=== PATIENT | female | born 1985 | race Hispanic/Latino ===

== ENCOUNTER 2017-09-13 18:05 | Emergency (ER) | payer BC ==
--- NOTE | 2017-09-13 21:44 | RAD ---
EXAM: LEFT HAND THIRD DIGIT THREE VIEWS 09/13/17 HISTORY: Pain. Injury. COMPARISON: None. FINDINGS: Joint space is preserved. No fracture. No cortical irregularity or periosteal reaction. IMPRESSION: No fracture. POS: [facility]ILA
[2017-09-13] MEDS ORDERED: Lidocaine 1% PF 5 ML VIAL ONE (22:37)
[2017-09-13] MEDS ORDERED: Bacitracin Zinc 1 Packet ONE (23:04)
== END 2017-09-13 23:17 | disposition home or self-care (01) ==
LOC: ERS 18:05
DX: S61.213A Laceration without foreign body of left middle finger without damage to nail, initial encounter (principal); W26.0XXA Contact with knife, initial encounter
CPT/HCPCS: 12001; J2001

== ENCOUNTER 2018-04-21 13:38 | Outpatient (CLI) | payer OTHER | END 2018-04-21 13:39 | disposition home or self-care (01) | LOC: BICULT 13:38 | PROVIDERS: ATTEND Family Medicine | DX: Z34.02 Encounter for supervision of normal first pregnancy, second trimester (principal); O32.1XX0 Maternal care for breech presentation, not applicable or unspecified; Z3A.20 20 weeks gestation of pregnancy | CPT/HCPCS: 76805 ==

== ENCOUNTER 2018-09-01 19:19 | Inpatient (IN) | payer MEDICAID, OTHER, SELFPAY ==
[2018-09-01] MEDS ORDERED: Butorphanol Tartrate 1 MG/ML VIAL SLOW IVP PRN (19:36)
[2018-09-01] MEDS ORDERED: NS / Oxytocin 40 units/1000ml 1,000 ML IV PRN (19:36)
[2018-09-01] MEDS ORDERED: Promethazine HCl 25 MG/ML VIAL IM PRN (19:36)
[2018-09-01] MEDS ORDERED: Lidocaine 1% (PF) 30 ML VIAL SC PRN (19:36)
[2018-09-01] MEDS ORDERED: Acetaminophen 500 MG TAB PO PRN (19:36)
[2018-09-01] MEDS ORDERED: Ondansetron PF 4 MG/2 ML Vial IVP PRN (19:36)
[2018-09-01] MEDS ORDERED: Ibuprofen 800 MG TAB PO PRN (19:36)
--- NOTE | 2018-09-01 19:39 | PDOC.EVN ---
Event Note - Event Note Event Note: 09/01/2018 at 21:30 33 year old female, patient of Dr. Aragon, presents with SROM and contractions since 21:00. Team called down to ER for possible precipitous delivery. Patient was checked and noted to be 2/100/0. She was brought up to L&D for expectant management. We are trying to obtain labs and history at this time. Patient does not desire epidural. Mable Chaudhari, DO PGY-2
[2018-09-01] MEDS ORDERED: Lactated Ringer's 1,000 ML IV SCH (19:45)
[2018-09-01 20:00] VITALS: BMI 33.0
[2018-09-01 20:13] LABS: Hemoglobin 11.3 g/dL (12.0-16.0); Mean Corpuscular HGB CONC 34.8 g/dL (32.0-36.0); Mean Corpuscular Hemoglobin 29.2 pg (27.0-31.0); Mean Corpuscular Volume 84.1 fL (78.0-98.0); Mean Platelet Volume 6.7 fL (7.4-10.4); Platelet Count 382 thou/uL (130-400); RBC Distribution Width 13.2 % (11.5-14.5); Red Blood Cell (RBC) Count 3.86 mill/uL (4.20-5.40); White Blood Cell (WBC) Count 11.9 thou/uL (4.8-10.8)
[2018-09-01 20:52] LABS: Syphilis Antibody Nonreactive (Nonreactive); Syphilis Antibody Index 0.52 S/CO (<1.00 Non-Reactive)
--- NOTE | 2018-09-01 20:52 | PDOC.LDHP ---
Labor and Delivery H&P Chief complaint: contractions, loss of fluid HPI: 33 year old at 39.5 wks with BERT of 09/03/2018 presents with PROM at 21: 00. Patient started to have regular contractions shortly thereafter. Denies vaginal bleeding. Endorses good movement. Current gestational age (weeks): 39 (39.5 wks) Due date: 09/03/18 Grav: 2 Para: 0 (0010) OB History Details: No complications in this per patient report Hx of SAB x1 Current complications: none Past Medical History: None Current medications: none Previous surgical history: none Allergies/Adverse Reactions: Allergies Allergy/AdvReac Type Severity Reaction Status Date / Time No Known Allergies Allergy Verified 09/01/18 19:46 Social history: none - Physical Exam Vital signs reviewed and normal: yes General: breathing through contractions Heart: RRR Lungs: nonlabored breathing Abdomen: gravid Extremeties: no edema FHT: category 1, variability present Hiram contractions every: q2 min - Vaginal Exam cm dilated: 2 Effacement: 90% Station: 0 - OB Labs GBS: negative (per patient report) - Assessment L&D Assessment: term rupture in membranes (expectant management) - Plan Plan: admit to L&D, other (DR Aragon notifed by me Patient seen and examined by Dr Phoenxi and myself)
[2018-09-01] MEDS ORDERED: Lidocaine 1% (PF) 30 ML VIAL ONE (21:02)
[2018-09-01] MEDS ORDERED: NS / Oxytocin 40 units/1000ml 1,000 ML ONE (21:02)
[2018-09-02] MEDS ORDERED: Lanolin Ointment 7 GM TUBE TOP PRN
[2018-09-02] MEDS ORDERED: diphenhydrAMINE 25 MG CAP PO PRN
[2018-09-02] MEDS ORDERED: Bisacodyl 10 MG SUPP PR PRN
[2018-09-02] MEDS ORDERED: NS / Oxytocin 40 units/1000ml 1,000 ML IV SCH
[2018-09-02] MEDS ORDERED: Benzocaine/Menthol 20-0.5% 60 ML CAN TOP PRN
[2018-09-02] MEDS ORDERED: Ondansetron PF 4 MG/2 ML Vial IVP PRN
[2018-09-02] MEDS ORDERED: HYDROcodone/Acetaminophen 5/325 mg Tablet PO PRN
[2018-09-02] MEDS ORDERED: Milk Of Magnesia 30 ML UDCUP PO PRN
[2018-09-02 00:15] LABS: HBSAg Index 0.25 S/CO (0-0.99); HIV (1/2) Antibody/Antigen Non-Reactive (NonReactive); HIV 1/2 INDEX 0.12 S/CO (<1.00); Hep B Surf Ag Non-Reactive S/CO (NonReactive)
[2018-09-02] MEDS: HYDROcodone/Acetaminophen 5/325 mg Tablet PO PRN ×2 (04:57→17:21)
[2018-09-02 05:49] LABS: Hemoglobin 8.3 g/dL (12.0-16.0); Mean Corpuscular HGB CONC 33.7 g/dL (32.0-36.0); Mean Corpuscular Hemoglobin 28.4 pg (27.0-31.0); Mean Corpuscular Volume 84.3 fL (78.0-98.0); Mean Platelet Volume 6.9 fL (7.4-10.4); Platelet Count 290 thou/uL (130-400); RBC Distribution Width 13.1 % (11.5-14.5); Red Blood Cell (RBC) Count 2.93 mill/uL (4.20-5.40); White Blood Cell (WBC) Count 17.3 thou/uL (4.8-10.8)
[2018-09-02] MEDS: Ibuprofen 800 MG TAB PO SCH ×3 (06:05→21:24)
[2018-09-02] MEDS ORDERED: Adacel (T-DAP) 0.5 ML SYRINGE IM ONE (09:00)
[2018-09-02] MEDS: Docusate Calcium (SURFAK) 240 MG CAP PO SCH ×2 (09:53→21:24)
[2018-09-02] MEDS: Prenatal Vitamin 1 TAB PO SCH (09:53)
[2018-09-02] MEDS: Ferrous Sulfate 325 MG TAB PO SCH ×2 (09:53→17:19)
[2018-09-03] MEDS: HYDROcodone/Acetaminophen 5/325 mg Tablet PO PRN (00:52)
[2018-09-03] MEDS: Ibuprofen 800 MG TAB PO SCH ×2 (05:54→13:48)
[2018-09-03] MEDS ORDERED: Polyethylene Glycol 3350 17 GM Packet PO PRN (07:26)
--- NOTE | 2018-09-03 07:55 | PDOC.PP ---
Post Progress Note Post Day #: 2 Subjective: Doing well. Doesn't have water at home and wishes to stay. Has not had BM and would like medication to help. PO intake tolerated: yes Flatus: yes Ambulation: yes Weight Weight 175 lb - Physical Examination General: NAD Respiratory: non-labored breathing Abdominal: lochia (normal), no distention, appropriately TTP Fundus firm & at: U-3 Neurological: no gross focal deficits Psychiatric: A&Ox3, normal affect Result Diagrams: 09/02/18 05:30 Additional Labs: Post Labs Blood Type O POSITIVE 09/01/18 20:01 Hep Bs Antigen Non-Reactive S/CO (NonReactive) 09/01/18 20:01 - Assessment/Plan Plan for d/c today but will check on possibility of B&B vs d/c tomorrow. Miralax ordered.
[2018-09-03 08:21] VITALS: BP 97/52; TEMP 97.5
[2018-09-03] MEDS: Prenatal Vitamin 1 TAB PO SCH (08:53)
[2018-09-03] MEDS: Docusate Calcium (SURFAK) 240 MG CAP PO SCH (08:53)
[2018-09-03] MEDS: Ferrous Sulfate 325 MG TAB PO SCH ×2 (08:53→17:20)
== END 2018-09-03 18:25 | disposition home or self-care (01) | DRG 807 ==
LOC: L&D/OP 19:19 → L&D 20:06 → 3SW 09-02 01:06
PROVIDERS: ADMIT Family Medicine; ATTEND Family Medicine
PROC: 10E0XZZ Delivery of Products of Conception, External Approach (ICD-10-PCS; principal; 2018-09-01)
PROC: 0W8NXZZ Division of Female Perineum, External Approach (ICD-10-PCS; 2018-09-01)
DX: O42.02 Full-term premature rupture of membranes, onset of labor within 24 hours of rupture (principal); Z37.0 Single live birth; Z3A.39 39 weeks gestation of pregnancy; O76 Abnormality in fetal heart rate and rhythm complicating labor and delivery
CPT/HCPCS: 36415; 85027; 86780; 86850; 86900; 86901; 87340; 87389; 99285; J2001

== ENCOUNTER 2020-07-14 08:36 | Outpatient (CLI) | payer OTHER ==
--- NOTE | 2020-07-14 11:28 | ULT ---
COMPLETE ABDOMINAL ULTRASOUND GREATER THAN 14 WEEKS: Date: 07/14/2020 HISTORY: Anatomy. Cervix evaluation. FINDINGS: Single viable intrauterine fetus is noted in breech presentation. Placenta is anterior. Amniotic fluid within normal limits. heart rate 143 bpm. Cervical length 3.0 cm. Maternal adnexa not demonstrated on this study. Anatomy: Visualized brain, 4 chamber heart, 3 vessel cord, stomach, bladder, kidneys, spine, and extremi ty regions are unremarkable. Biometry: BPD: 4.8 cm - 20 weeks 5 days HC: 17.5 cm - 20 weeks 0 days AC: 16.4 cm - 21 weeks 4 days FL: 3.5 cm - 21 weeks 1 day IMPRESSION: Single, viable breech intrauterine fetus at 20 weeks 6 days with an BERT of 11/25/2020. POS: RRE
== END 2020-07-14 08:37 | disposition home or self-care (01) ==
LOC: BICULT 08:36
PROVIDERS: ATTEND Family Medicine
DX: O09.522 Supervision of elderly multigravida, second trimester (principal); O32.1XX0 Maternal care for breech presentation, not applicable or unspecified; Z3A.20 20 weeks gestation of pregnancy
CPT/HCPCS: 76805

== ENCOUNTER 2020-07-29 08:36 | Outpatient (CLI) | payer OTHER ==
--- NOTE | 2020-07-29 10:42 | ULT ---
LIMITED OB ULTRASOUND: INDICATION: Assess cervical length. FINDINGS: There is a single viable intrauterine . Cervical length: 4.02 cm. The internal os is closed. Placenta: Anterior. heart rate: 142 b.p.m. Presentation: Breech. POS: AGW
== END 2020-07-29 08:37 | disposition home or self-care (01) ==
LOC: BICULT 08:36
PROVIDERS: ATTEND Family Medicine
DX: O09.522 Supervision of elderly multigravida, second trimester (principal)
CPT/HCPCS: 76815

== ENCOUNTER 2023-09-02 14:52 | Outpatient (CLI) | payer OTHER | END 2023-09-02 14:53 | disposition home or self-care (01) | LOC: BICRAD 14:52 | DX: S69.92XA Unspecified injury of left wrist, hand and finger(s), initial encounter (principal) ==